=== PATIENT | male | born 1975 | race Caucasian/White ===

== ENCOUNTER 2017-02-08 16:41 | Inpatient (IN) ==
[2017-02-08] MEDS ORDERED: Naloxone 0.4 MG/ML INJ IVP PRN (20:28)
[2017-02-08] MEDS ORDERED: *HR* Morphine 2 MG/ML SYRINGE IVP PRN (20:28)
[2017-02-08] MEDS ORDERED: Ondansetron 4 MG/2 ML VIAL IVP PRN (20:28)
[2017-02-08] MEDS ORDERED: *HR* HYDROcodone/Acet 5/325 mg TABLET PO PRN (20:28)
[2017-02-08] MEDS ORDERED: Acetaminophen 325 MG TABLET PO PRN (20:28)
[2017-02-08] MEDS ORDERED: Pantoprazole 40 MG VIAL IVP SCH (20:30)
[2017-02-08] MEDS ORDERED: 0.9 % Sodium Chloride 1,000 ML IVC ONE (20:41)
[2017-02-08] MEDS ORDERED: 0.9 % Sodium Chloride 1,000 ML IVC SCH (20:45)
[2017-02-08] MEDS ORDERED: Piperacillin/Tazobactam 3.375 GM in D5% in Water (Mini-Bag+) 100 ML IVPB SCH (21:00)
[2017-02-08] MEDS ORDERED: Vancomycin 1,000 MG in D5% in Water 250 ML IVPB SCH ×2 (21:00→22:00)
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
[2017-02-08 23:25] LABS: Bilirubin,Urine Negative (Negative); Blood,Urine Trace (Negative); Clarity,Urine Cloudy (Clear); Color,Urine Yellow (Yellow); Glucose,Urine (UA) Normal (Normal); Ketones,Urine Negative (Negative); Leukocyte Esterase,Urine Moderate (Negative); Nitrite,Urine Negative (Negative); PH,Urine 6.5 pH Units (5.0-8.0); Protein,Urine Negative (Neg-Trace); Specific Gravity,Urine 1.021 (1.010-1.025); Urobilinogen,Urine Normal (Normal)
[2017-02-08 23:26] LABS: Bacteria,Urine Many per hpf (None-Few); Hyaline Casts,Urine Moderate per lpf (None-Few); RBC,Urine 0-3 per hpf (0-3); Squamous Epithelial Cell,Urine Many per lpf (None-Few); WBC,Urine 50-100 per hpf (0-3)
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
[2017-02-09] MEDS ORDERED: *HR* FentaNYL (PF) 100 MCG/2 ML VIAL ONE (01:18)
[2017-02-09] MEDS ORDERED: *HR* Propofol 200 MG/20 ML VIAL IVP ONE (01:18)
[2017-02-09] MEDS ORDERED: *HR* Midazolam HCl 2 MG/2 ML VIAL ONE (01:18)
[2017-02-09] MEDS ORDERED: Lidocaine -MPF 2% 2 ML VIAL ONE (01:18)
[2017-02-09] MEDS ORDERED: *HR* Succinylcholine 200 MG/10 ML VIAL IVP ONE (01:19)
[2017-02-09] MEDS ORDERED: Neosporin OINT 15 GM TUBE TP ONE (01:32)
--- NOTE | 2017-02-09 01:32 | Urology - Consult Note ---
Date of Encounter: 02/09/17 Time of Encounter: 01:30 - Assessment and Plan (1) Enlarged testicle Current Visit: Yes Status: Acute Assessment and plan: I reviewed the ultrasound images and this combined with his exam does raise significant concern that this is testicular torsion. It is also very possible with his history it could be epididymoorchitis. Because of the potential for torsion urgent surgical intervention is required. We'll proceed with scrotal exploration tonight. Patient understands that if the testicle has been torsed since Monday it will likely require an orchiectomy as it will not be viabl. It is possible that he has partial torsion and a viable testicle that could be preserved. He voiced to me that if there is any concern that the testicle is not viable he desires an orchiectomy to speed his recovery. He also notes that if there is evidence of a severe infection on inspection of the testicle that he desires an orchiectomy. He is agreeable to preserving the testicle if it does appear viable. If portion is present we will proceed with a contralateral orchiopexy and he voiced an understanding for the indications of this procedure. All questions answered. Urology CN:HPI History of present illness: 42-year-old male transferred from outside facility. 5 days of left testicular discomfort and swelling that is worsening. States the pain is almost unbearable. Outside ultrasound unavailable but reportedly on concerning. Ultrasound done at this facility indicates concern for torsion. Past Med Surg Social Fam HX - Past Medical History Medical history: no medical history Psychiatric history: no psych history - Social History Smoking Status: Current every day smoker Packs per day: 1/4 PPD Smokeless Tobacco Status: No Alcohol use: none Drug use: none - Family History Father Race: Family Member Ethnicity: Non- Living Status: Still Living Hx Family Cardiac Disorders: Yes Medications and Allergies Unable To Obtain [Unable to Obtain] 02/08/17 [History] 3 Allergy/AdvReac Type Severity Reaction Status Date / Time No Known Allergies Allergy Verified 02/08/17 14:26 Review of Systems - Constitutional chills, fever(s) - EENT Nose, mouth and throat: no dizziness - Cardiovascular no chest pain - Respiratory no cough - Gastrointestinal abdominal pain, nausea - Genitourinary scrotal swelling - Musculoskeletal back pain - Integumentary no erythema - Neurological no confusion - Psychiatric no anxiety - Hematologic/Lymphatic no easy bleeding - Allergic/Immunologic no throat swelling Exam Initial Vital Signs Temp Pulse Resp BP Pulse Ox 99.2 F 74 14 114/73 98 02/08/17 18:56 02/08/17 18:56 02/08/17 18:56 02/08/17 18:56 02/08/17 18:56 - General physical appearance Present: no distress, moderate pain - Eyes Present: PERRL - ENT Present: normal nares - Neck Present: no masses - Respiratory Present: normal respiratory effort - Cardiovascular Cardiovascular exam IM: RRR - Abdomen Abdomen: Present: soft - Genitourinary normal penis with no external lesions - Integumentary Present: no rash - Neurologic Present: normal coordination. Absent: disoriented, confused - Additional Findings Firm enlarged left testicle. Approximately twice the size of the contralateral testicle. Matted skin overlying the testicle. No major erythema or signs of abscess. Absent cremasteric reflex. Significant tenderness on exam. Urology Results - Labs Abnormal lab results Urine Clarity Cloudy (Clear) A 02/08/17 22:10 Urine Blood Trace (Negative) H 02/08/17 22:10 Ur Leukocyte Esterase Moderate (Negative) H 02/08/17 22:10 Urine Microscopic WBC 50-100 per hpf (0-3) H 02/08/17 22:10 Ur Squamous Epith Cells Many per lpf (None-Few) H 02/08/17 22:10 Urine Bacteria Many per hpf (None-Few) H 02/08/17 22:10 Hyaline Casts Moderate per lpf (None-Few) H 02/08/17 22:10 Ur Culture Indicated? YES (NO) A 02/08/17 22:10 All other labs normal. Consult Discharge Plan - Plan Referrals: Slick Fink, PROMOTIONS EXECUTIVE [Primary Care Provider] - NONE,PCP [Family Provider] -
--- NOTE | 2017-02-09 01:34 | Event Note ---
Date of Encounter: 02/09/17 Time of Encounter: 01:32 Patient seen and examined with nurse practitioner. Acute epididymo-orchitis vs. testicular torsion. He has had a fever leukocytosis so start the patient on vancomycin Zosyn. Stat ultrasound was obtained which showed concern for torsion. Case immediately discussed with urology who has presented to evaluate the patient and take him to the OR.
[2017-02-09] MEDS ORDERED: *HR* Promethazine 25 MG/ML VIAL IVP PRN (01:42)
[2017-02-09] MEDS ORDERED: Ondansetron 4 MG/2 ML VIAL ONE (02:13)
[2017-02-09] MEDS ORDERED: Dexamethasone 4 MG/ML VIAL ONE (02:13)
[2017-02-09] MEDS ORDERED: *HR* HYDROmorphone 2 MG/ML SYRINGE ONE (02:21)
--- NOTE | 2017-02-09 02:54 | Operative Note ---
Date of procedure: 02/09/17 Pre-op diagnosis: Possible left testicular torsion Post-op diagnosis: other (Likely epididymal orchitis) Procedure: Scrotal exploration Left orchiectomy Anesthesia: GETA Surgeon: David Frost Estimated blood loss (cc): 20 Specimen: Left testicle Condition: stable Disposition: PACU Procedure in Detail: Patient was taken back to the operating room for concern of left testicular torsion based on ultrasound. Preoperatively epididymal orchitis was considered but his exam and ultrasound did suggest possibility for torsion. Elected to proceed with scrotal exploration. He is brought to the operating room positioned supine on the operative table. Anesthesia was applied without complication. He was prepped and draped in a sterile fashion. Timeout was performed confirming the proper patient and procedure. 15 blade scalpel was used to make a incision in the median raphae of the scrotum. The scrotal wall and dartos tissue was densely adherent to the left testicle. Was eventually able to deliver the testicle into the operative field. Testicle was very firm and abnormal. I did not open the tunica to further examine. I did examine the cord structures to the most superior aspect of the scrotum and did not see evidence of cord torsion. I suspected at this point that the patient had epididymal orchitis. Due to his fevers, persistent pain, no improvement on antibiotics and preoperative desire for an orchiectomy I elected to proceed with an orchiectomy. The spermatic cord was ligated high in the scrotum using multiple 2-0 PDS sutures. The cord structures were using hemostat and individually tied with the PDS sutures. The Bovie was used to ligate the cord just below the sutures. Testicle was delivered off the operative field. I carefully examined hemiscrotum to provide hemostasis. The right hemiscrotum was not entered. I did not perform an orchiopexy as there was no evidence of torsion. Scrotum was closed with 2-0 Vicryl and then interrupted 3-0 chromic. Scrotal support was placed.
[2017-02-09] MEDS: *HR* HYDROmorphone (PF) 1 MG/ML SYRINGE IVP PRN ×4 (03:13→03:29)
[2017-02-09] MEDS ORDERED: Ketorolac 30 MG/ML VIAL ONE (03:26)
--- NOTE | 2017-02-09 03:36 | Anesthesia Evaluation Post Op ---
Date of Encounter: 02/09/17 Time of Encounter: 03:36 - Vital Signs Vital Signs: Last Vital Signs Temp 98.8 F 02/09/17 02:55 Pulse 80 02/09/17 03:25 Resp 18 02/09/17 03:25 BP 129/81 02/09/17 03:25 Pulse Ox 96 02/09/17 03:25 - Lungs Lungs: Clear Ascult./Percussion - Airway Airway: Non-obstructed - Cardiovascular Regular Rate - Mental Status Mental Status: Alert & Oriented, Answers Appropriately - Pain Pain Scale: 6 - Nausea Vomiting Nausea Vomiting: Not Present - Hydration Hydration: Ice chips - Discharge PostOp Status: Transfer Patient to floor
[2017-02-09] MEDS ORDERED: Acetaminophen 325 MG TABLET PO PRN (04:07)
[2017-02-09] MEDS ORDERED: Ondansetron 4 MG/2 ML VIAL IVP PRN (04:07)
[2017-02-09] MEDS ORDERED: Naloxone 0.4 MG/ML INJ IVP PRN (04:07)
[2017-02-09] MEDS: 0.9 % Sodium Chloride 1,000 ML IVC SCH ×2 (04:35→14:23)
[2017-02-09] MEDS ORDERED: Piperacillin/Tazobactam 3.375 GM in D5% in Water (Mini-Bag+) 100 ML IVPB SCH (05:00)
[2017-02-09 05:38] LABS: Basophils # 0.1 K/mcL (0.0-0.2); Basophils % 0.4 %; Eosinophils # 0.1 K/mcL (0.0-0.6); Eosinophils % 0.6 %; Hematocrit 37.7 % (37.5-50.1); Hemoglobin 12.5 g/dL (12.9-16.9); Immature Granulocytes % 2.7 % (0-4); Lymphocytes # 1.6 K/mcL (0.6-4.6); Lymphocytes % 9.1 %; Mean Corpuscular HGB Conc 33.2 g/dL (31.6-35.5); Mean Corpuscular Hemoglobin 30.5 pg (28.0-33.3); Mean Platelet Volume 9.7 fL (9.4-12.4); Monocytes # 0.8 K/mcL (0.0-1.3); Monocytes % 4.6 %; Neutrophils # 14.3 K/mcL (1.6-8.9); Platelet Count 461 K/mcL (140-400); Red Cell Distribution Width 14.5 % (11.5-14.5); Segmented Neutrophils % 82.6 %
[2017-02-09] MEDS: Pantoprazole 40 MG VIAL IVP SCH (05:49)
[2017-02-09 05:59] LABS: Alanine Aminotransferase 11 Units/L (0-55); Albumin 2.4 g/dL (3.5-5.0); Albumin/Globulin Ratio 0.5 (1.1-2.2); Alkaline Phosphatase 111 Units/L (38-126); Aspartate Amino Transferase 14 Units/L (5-34); BUN/Creatinine Ratio 10 (6-26); Bilirubin,Total 0.3 mg/dL (0.2-1.2); Blood Urea Nitrogen 11 mg/dL (8-26); Calcium 8.9 mg/dL (8.6-10.8); Carbon Dioxide 25 mEq/L (19-29); Chloride 106 mEq/L (98-109); Cholesterol 103 mg/dL (< 200); Globulin 4.4 g/dL (2.4-3.5); Glucose 164 mg/dL (70-99); Magnesium 1.6 mg/dL (1.6-2.6); Osmolality,Calculated 289 (280-300); Potassium 4.5 mEq/L (3.5-4.5); Sodium 138 mEq/L (136-145); Total Protein 6.8 g/dL (6.0-8.3); Triglycerides 70 mg/dL (< 150); eGFR For African Americans > 60 (> 60); eGFR For Non-African Americans > 60 (> 60)
[2017-02-09] MEDS ORDERED: *HR* Enoxaparin 40 MG/0.4 ML SYRINGE SQ SCH (06:00)
[2017-02-09] MEDS: *HR* Morphine 2 MG/ML SYRINGE IVP PRN ×5 (06:03→23:46)
[2017-02-09 06:46] LABS: Chol/HDL Ratio 4.9 (0-4.9); HDL Cholesterol 21 mg/dL (40-59); LDL Cholesterol,Calculated 68 mg/dL (0-99)
--- NOTE | 2017-02-09 09:57 | Internal Med Progress Note ---
<Kym Riley - Last Filed: 02/09/17 12:55> Date of Encounter: 02/09/17 Time of Encounter: 09:54 - Assessment and plan (1) Enlarged testicle Current Visit: Yes Status: Acute Assessment and plan: Left Epididymal orchitis Patient presented with left scrotal pain, swelling, erythema patient is afebrile, reports improvement of testicular pain scrotal ultrasound showed abnormal appearance of the left testicle suspicious for partial portion Urology consulted and took patient to OR today and performed left orchiectomy. No torsion found. -start Levaquin -stop Vancomycin -stop Zosyn -blood culture pending -urine culture pending -pathology report of left testicle pending (2) Leukocytosis Current Visit: Yes Status: Acute Assessment and plan: Patient has leukocytosis WBC 17.3 most likely due to left epididymal orchitis -start levaquin Qualifiers: Leukocytosis type: unspecified Qualified Code(s): D72.829 - Elevated white blood cell count, unspecified (3) 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 For which he has been treated with antibiotics frequently. Currently denies dysuria and hematuria (5) DVT prophylaxis Current Visit: Yes Status: Acute Assessment and plan: ESCP - Subjective Interval history: Laying in bed comfortably s/p left orchiectomy he denies fever, chills, shortness of breath, chest pain, urethral discharge, burning with urination he has no complaints at this time - Constitutional Vitals: Temp Pulse Resp BP Pulse Ox 97.8 F 72 16 112/67 96 02/09/17 07:30 02/09/17 07:30 02/09/17 07:30 02/09/17 07:30 02/09/17 07:30 General appearance: Present: cooperative, mild distress, A&O X 3, pleasant, underweight, answers questions appropriately Exam: Gen.: Vitals noted. No acute distress. AAOx3 HEENT: oropharynx clear, Normocephalic, atraumatic Cardiac: RRR, no murmur, +S1/S2 Pulmonary: CTA bilaterally, no wheezes, rales or rhonchi, equal chest expansion Abdomen: soft, nontender, Bowel sounds noted, no guarding Extremities: no BLE edema, nontender calf, no cyanosis or clubbing Neuro: A&Ox3, moves all extremities Psych: Appropriate mood and behavior Internal Medicine: Result - Labs CBC & Chem 7: 02/09/17 05:00 02/09/17 05:00 Labs: Short CBC 02/09/17 Range/Units 05:00 WBC 17.3 H (4.3-11.1) K/mcL Hgb 12.5 L (12.9-16.9) g/dL Hct 37.7 (37.5-50.1) % Plt Count 461 H (140-400) K/mcL Neutrophils # 14.3 H (1.6-8.9) K/mcL BMP 02/09/17 05:00 Sodium 138 Potassium 4.5 Chloride 106 Carbon Dioxide 25 BUN 11 Creatinine 1.07 Glucose 164 H Calcium 8.9 Liver Function 02/09/17 Range/Units 05:00 Total Bilirubin 0.3 (0.2-1.2) mg/dL AST 14 (5-34) Units/L ALT 11 (0-55) Units/L Alkaline Phosphatase 111 (38-126) Units/L Albumin 2.4 L (3.5-5.0) g/dL Urine 02/08/17 Range/Units 22:10 Urine Color Yellow (Yellow) Urine Clarity Cloudy A (Clear) Urine pH 6.5 (5.0-8.0) pH Units Ur Specific [place] 1.021 (1.010-1.025) Urine Protein Negative (Neg-Trace) mg/dL Urine Glucose (UA) Normal (Normal) mg/dL - Impressions Impressions Scrotum Ultrasound 02/08/17 20:31 IMPRESSION: Abnormal appearance of the left testicle could indicate intermittent or partial torsion. Critical results were called by Dr. Michel Alcocer MD to Dr. Ron On 02/08/2017 at 23:44. D/ / Michel Alcocer MD / Michel Alcocer MD Interpreting Provider: Michel Alcocer MD - VTE Documentation of Mechanical Device: Intermittent pneumatic compression device Consult Discharge Plan - Plan Referrals: Slick Fink, ONCOLOGY SOCIAL WORK [Primary Care Provider] - NONE,PCP [Family Provider] - <Rafiq Yo H - Last Filed: 02/09/17 15:47> Date of Encounter: 02/09/17 - Constitutional Vitals: Temp Pulse Resp BP Pulse Ox 98.0 F 69 16 111/70 98 02/09/17 15:12 02/09/17 15:12 02/09/17 15:12 02/09/17 15:12 02/09/17 15:12 Internal Medicine: Result - Labs CBC & Chem 7: 02/09/17 05:00 02/09/17 05:00 Labs: Short CBC 02/09/17 Range/Units 05:00 WBC 17.3 H (4.3-11.1) K/mcL Hgb 12.5 L (12.9-16.9) g/dL Hct 37.7 (37.5-50.1) % Plt Count 461 H (140-400) K/mcL Neutrophils # 14.3 H (1.6-8.9) K/mcL BMP 02/09/17 05:00 Sodium 138 Potassium 4.5 Chloride 106 Carbon Dioxide 25 BUN 11 Creatinine 1.07 Glucose 164 H Calcium 8.9 Liver Function 02/09/17 Range/Units 05:00 Total Bilirubin 0.3 (0.2-1.2) mg/dL AST 14 (5-34) Units/L ALT 11 (0-55) Units/L Alkaline Phosphatase 111 (38-126) Units/L Albumin 2.4 L (3.5-5.0) g/dL Urine 02/08/17 Range/Units 22:10 Urine Color Yellow (Yellow) Urine Clarity Cloudy A (Clear) Urine pH 6.5 (5.0-8.0) pH Units Ur Specific [place] 1.021 (1.010-1.025) Urine Protein Negative (Neg-Trace) mg/dL Urine Glucose (UA) Normal (Normal) mg/dL - Impressions Impressions Scrotum Ultrasound 02/08/17 20:31 IMPRESSION: Abnormal appearance of the left testicle could indicate intermittent or partial torsion. Critical results were called by Dr. Michel Alcocer MD to Dr. Ron On 02/08/2017 at 23:44. D/ / Michel Alcocer MD / Michel Alcocer MD Interpreting Provider: Michel Alcocer MD - Attending Attestation Medical records obtained from [facility] showed multiple bacteria growing in urine at different times/cultures including Klebsiella, alpha streptococcus, lactobacillus, diphtheroids, enterococcus, no sensitivities available Order gonococcus and Chlamydia testing urine Continue Levaquin, await culture reports I examined this patient and my medical decision-making was reviewed with the Resident Physician. I agree with the documented findings, disposition and treatment plan as described except to the extent set forth below.
[2017-02-09] MEDS ORDERED: Vancomycin 1,000 MG in D5% in Water 250 ML IVPB SCH (10:00)
[2017-02-09] MEDS ORDERED: Aminoglycoside Consult 1 EACH MC ONE (11:25)
[2017-02-09] MEDS ORDERED: Levofloxacin 750 MG/150 ML 750 MG/150 ML BAG IVPB SCH (12:00)
[2017-02-10] MEDS: 0.9 % Sodium Chloride 1,000 ML IVC SCH ×2 (00:41→11:03)
[2017-02-10 05:04] LABS: Hematocrit 34.6 % (37.5-50.1); Hemoglobin 11.6 g/dL (12.9-16.9); Mean Corpuscular HGB Conc 33.5 g/dL (31.6-35.5); Mean Corpuscular Hemoglobin 30.7 pg (28.0-33.3); Mean Corpuscular Volume 91.5 fL (83.0-100.0); Mean Platelet Volume 9.5 fL (9.4-12.4); Platelet Count 451 K/mcL (140-400); Red Blood Count 3.78 M/mcL (4.19-5.50); Red Cell Distribution Width 14.5 % (11.5-14.5)
[2017-02-10] MEDS: Pantoprazole 40 MG VIAL IVP SCH (05:20)
[2017-02-10 05:24] LABS: BUN/Creatinine Ratio 11 (6-26); Blood Urea Nitrogen 10 mg/dL (8-26); Calcium 8.8 mg/dL (8.6-10.8); Carbon Dioxide 25 mEq/L (19-29); Chloride 112 mEq/L (98-109); Glucose 126 mg/dL (70-99); Osmolality,Calculated 291 (280-300); Potassium 4.1 mEq/L (3.5-4.5); Sodium 140 mEq/L (136-145); eGFR For African Americans > 60 (> 60); eGFR For Non-African Americans > 60 (> 60)
--- NOTE | 2017-02-10 06:53 | Urology Progress Note ---
Date of Encounter: 02/10/17 Time of Encounter: 06:51 - Assessment and Plan (1) Enlarged testicle Current Visit: Yes Status: Resolved Assessment and plan: orchiectomy performed likely epididymorchitis (not torsion) (2) Leukocytosis Current Visit: Yes Status: Resolved Assessment and plan: although his vitals are OK his is WBC increasing. yesterday was likely reaction to surgery but should have decreased today. switched to levaquin yesterday. need to consider that he is resistant to flouroquinolones. check if outside cultures are available ([facility]). Discussed with nurses and they will call to obtain results. If sensitive to fluoroquinolones, then would proceed with CT scan ABD/pelvis with IV contrast to look for other source of infection. If resistant to flouroquinolones, switch to sensitive ABX and no need for imaging. Qualifiers: Leukocytosis type: unspecified Qualified Code(s): D72.829 - Elevated white blood cell count, unspecified Progress Note Subjective: still having pain, pain is less Narrative: overall patient feels better after orchiectomy. no fever. WBC increased. Objective Initial Vital Signs Temp Pulse Resp BP Pulse Ox 99.2 F 74 14 114/73 98 02/08/17 18:56 02/08/17 18:56 02/08/17 18:56 02/08/17 18:56 02/08/17 18:56 - General physical appearance Present: no distress - Additional Exam expected edema and erythema in scrotum. no evidence of progressing infection. - Labs 02/10/17 04:49 02/10/17 04:49 Diabetes panel 02/10/17 Range/Units 04:49 Sodium 140 (136-145) mEq/L Potassium 4.1 (3.5-4.5) mEq/L Chloride 112 H (98-109) mEq/L Carbon Dioxide 25 (19-29) mEq/L BUN 10 (8-26) mg/dL Creatinine 0.92 (0.72-1.25) mg/dL Glucose 126 H (70-99) mg/dL Calcium 8.8 (8.6-10.8) mg/dL Calcium panel 02/10/17 Range/Units 04:49 Calcium 8.8 (8.6-10.8) mg/dL Pituitary panel 02/10/17 Range/Units 04:49 Sodium 140 (136-145) mEq/L Potassium 4.1 (3.5-4.5) mEq/L Chloride 112 H (98-109) mEq/L Carbon Dioxide 25 (19-29) mEq/L BUN 10 (8-26) mg/dL Creatinine 0.92 (0.72-1.25) mg/dL Glucose 126 H (70-99) mg/dL Calcium 8.8 (8.6-10.8) mg/dL Adrenal panel 02/10/17 Range/Units 04:49 Sodium 140 (136-145) mEq/L Potassium 4.1 (3.5-4.5) mEq/L Chloride 112 H (98-109) mEq/L Carbon Dioxide 25 (19-29) mEq/L BUN 10 (8-26) mg/dL Creatinine 0.92 (0.72-1.25) mg/dL Glucose 126 H (70-99) mg/dL Calcium 8.8 (8.6-10.8) mg/dL - VTE Documentation of Mechanical Device: Intermittent pneumatic compression device Consult Discharge Plan - Plan Referrals: Slick Fink, DIES[employer] LOCOMOTIVE FIRER/FIREMAN [Primary Care Provider] - NONE,PCP [Family Provider] -
--- NOTE | 2017-02-10 08:44 | Internal Med Progress Note ---
<Kym Riley - Last Filed: 02/10/17 13:32> Date of Encounter: 02/10/17 Time of Encounter: 08:37 - Assessment and plan (1) Enlarged testicle Current Visit: Yes Status: Resolved Assessment and plan: Left Epididymal orchitis Patient presented with left scrotal pain, swelling, erythema patient is afebrile, reports improvement of testicular pain scrotal ultrasound showed abnormal appearance of the left testicle suspicious for partial portion S/P left orchiectomy. No torsion found. -Urine culture grows E. coli -blood culture preliminary no growth -Continue Levaquin -start Meropenem -pathology report of left testicle pending -awaiting sensitivity for urine culture at [facility], if Levaquin is an antibiotic of choice then CT Abd/pelvis (2) Leukocytosis Current Visit: Yes Status: Resolved Assessment and plan: Patient has leukocytosis WBC 24.5 most likely due to left epididymal orchitis May be due to abscess or resistance to Levaquin or ESLB - Continue levaquin -start meropenem Qualifiers: Leukocytosis type: unspecified Qualified Code(s): D72.829 - Elevated white blood cell count, unspecified (3) 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 For which he has been treated with antibiotics frequently. Currently denies dysuria and hematuria (5) DVT prophylaxis Current Visit: Yes Status: Acute Assessment and plan: ESCP - Subjective Interval history: Laying in bed comfortably he denies fever, chills, shortness of breath, chest pain, urethral discharge, burning with urination His only complaint is soreness in his scrotum - Constitutional Vitals: Temp Pulse Resp BP Pulse Ox 98.2 F 56 16 117/69 98 02/10/17 07:21 02/10/17 07:21 02/10/17 07:21 02/10/17 07:21 02/10/17 07:21 General appearance: Present: cooperative, mild distress, A&O X 3, pleasant, underweight, answers questions appropriately Exam: Gen.: Vitals noted. No acute distress. AAOx3 HEENT: oropharynx clear, Normocephalic, atraumatic Cardiac: RRR, no murmur, +S1/S2 Pulmonary: CTA bilaterally, no wheezes, rales or rhonchi, equal chest expansion Abdomen: soft, nontender, Bowel sounds noted, no guarding Extremities: no BLE edema, nontender calf, no cyanosis or clubbing scrotum: no exudate. Well healing. Minimal erythema Neuro: A&Ox3, moves all extremities Psych: Appropriate mood and behavior Internal Medicine: Result - Labs CBC & Chem 7: 02/10/17 04:49 02/10/17 04:49 Labs: Short CBC 02/10/17 Range/Units 04:49 WBC 24.5 H (4.3-11.1) K/mcL Hgb 11.6 L (12.9-16.9) g/dL Hct 34.6 L (37.5-50.1) % Plt Count 451 H (140-400) K/mcL BMP 02/10/17 04:49 Sodium 140 Potassium 4.1 Chloride 112 H Carbon Dioxide 25 BUN 10 Creatinine 0.92 Glucose 126 H Calcium 8.8 - VTE Documentation of Mechanical Device: Intermittent pneumatic compression device Consult Discharge Plan - Plan Referrals: Slick Fink, FOOD ORDER EXPEDITER [Primary Care Provider] - NONE,PCP [Family Provider] - <Rafiq Yo H - Last Filed: 02/10/17 16:08> Date of Encounter: 02/10/17 - Constitutional Vitals: Temp Pulse Resp BP Pulse Ox 98.2 F 99 15 128/68 98 02/10/17 15:11 02/10/17 15:11 02/10/17 15:11 02/10/17 15:11 02/10/17 15:11 Internal Medicine: Result - Labs CBC & Chem 7: 02/10/17 04:49 02/10/17 04:49 Labs: Short CBC 02/10/17 Range/Units 04:49 WBC 24.5 H (4.3-11.1) K/mcL Hgb 11.6 L (12.9-16.9) g/dL Hct 34.6 L (37.5-50.1) % Plt Count 451 H (140-400) K/mcL BMP 02/10/17 04:49 Sodium 140 Potassium 4.1 Chloride 112 H Carbon Dioxide 25 BUN 10 Creatinine 0.92 Glucose 126 H Calcium 8.8 - Attending Attestation Continue meropenem Escherichia coli growing in urine culture, final report pending I examined this patient and my medical decision-making was reviewed with the Resident Physician. I agree with the documented findings, disposition and treatment plan as described except to the extent set forth below.
[2017-02-10] MEDS: Meropenem 1,000 MG in 0.9 % Sodium Chloride Mini Bag 100 ML IVPB SCH ×2 (09:38→16:24)
[2017-02-10] MEDS: *HR* HYDROcodone/Acet 5/325 mg TABLET PO PRN ×3 (11:02→21:48)
[2017-02-11] MEDS: Meropenem 1,000 MG in 0.9 % Sodium Chloride Mini Bag 100 ML IVPB SCH ×2 (00:02→08:29)
[2017-02-11] MEDS: *HR* HYDROcodone/Acet 5/325 mg TABLET PO PRN (03:19)
[2017-02-11 03:53] LABS: Basophils # 0.1 K/mcL (0.0-0.2); Basophils % 0.5 %; Eosinophils # 0.1 K/mcL (0.0-0.6); Eosinophils % 0.9 %; Hematocrit 35.2 % (37.5-50.1); Hemoglobin 11.7 g/dL (12.9-16.9); Immature Granulocytes % 3.9 % (0-4); Lymphocytes # 5.1 K/mcL (0.6-4.6); Lymphocytes % 38.2 %; Mean Corpuscular HGB Conc 33.2 g/dL (31.6-35.5); Mean Corpuscular Hemoglobin 30.6 pg (28.0-33.3); Mean Corpuscular Volume 92.1 fL (83.0-100.0); Mean Platelet Volume 9.7 fL (9.4-12.4); Monocytes # 1.1 K/mcL (0.0-1.3); Monocytes % 8.2 %; Neutrophils # 6.4 K/mcL (1.6-8.9); Platelet Count 494 K/mcL (140-400); Red Blood Count 3.82 M/mcL (4.19-5.50); Red Cell Distribution Width 14.7 % (11.5-14.5); Segmented Neutrophils % 48.3 %
[2017-02-11] MEDS: 0.9 % Sodium Chloride 1,000 ML IVC SCH (03:57)
[2017-02-11 04:05] LABS: BUN/Creatinine Ratio 8 (6-26); Blood Urea Nitrogen 7 mg/dL (8-26); Calcium 8.7 mg/dL (8.6-10.8); Carbon Dioxide 27 mEq/L (19-29); Chloride 110 mEq/L (98-109); Glucose 98 mg/dL (70-99); Osmolality,Calculated 294 (280-300); Sodium 143 mEq/L (136-145); eGFR For African Americans > 60 (> 60); eGFR For Non-African Americans > 60 (> 60)
[2017-02-11] MEDS: Pantoprazole 40 MG VIAL IVP SCH (06:11)
[2017-02-11 07:19] VITALS: BP 123/76
--- NOTE | 2017-02-11 09:48 | Urology Progress Note ---
Date of Encounter: 02/11/17 Time of Encounter: 09:46 - Assessment and Plan (1) Enlarged testicle Current Visit: Yes Status: Resolved Assessment and plan: scrotum healing well. path discussed. followup 2-4 weeks. maintain scrotal support. OK to shower. avoid baths or swimming. continue culture specifc ABX for 2 weeks. (2) Leukocytosis Current Visit: Yes Status: Resolved Qualifiers: Leukocytosis type: unspecified Qualified Code(s): D72.829 - Elevated white blood cell count, unspecified Progress Note Subjective: feels better Narrative: WBC down to 13 Objective Initial Vital Signs Temp Pulse Resp BP Pulse Ox 99.2 F 74 14 114/73 98 02/08/17 18:56 02/08/17 18:56 02/08/17 18:56 02/08/17 18:56 02/08/17 18:56 - General physical appearance Present: no distress - Additional Exam no major scrotal cellulitis - Labs 02/11/17 03:15 02/11/17 03:15 Diabetes panel 02/11/17 Range/Units 03:15 Sodium 143 (136-145) mEq/L Potassium 4.0 (3.5-4.5) mEq/L Chloride 110 H (98-109) mEq/L Carbon Dioxide 27 (19-29) mEq/L BUN 7 L (8-26) mg/dL Creatinine 0.92 (0.72-1.25) mg/dL Glucose 98 (70-99) mg/dL Calcium 8.7 (8.6-10.8) mg/dL Calcium panel 02/11/17 Range/Units 03:15 Calcium 8.7 (8.6-10.8) mg/dL Pituitary panel 02/11/17 Range/Units 03:15 Sodium 143 (136-145) mEq/L Potassium 4.0 (3.5-4.5) mEq/L Chloride 110 H (98-109) mEq/L Carbon Dioxide 27 (19-29) mEq/L BUN 7 L (8-26) mg/dL Creatinine 0.92 (0.72-1.25) mg/dL Glucose 98 (70-99) mg/dL Calcium 8.7 (8.6-10.8) mg/dL Adrenal panel 02/11/17 Range/Units 03:15 Sodium 143 (136-145) mEq/L Potassium 4.0 (3.5-4.5) mEq/L Chloride 110 H (98-109) mEq/L Carbon Dioxide 27 (19-29) mEq/L BUN 7 L (8-26) mg/dL Creatinine 0.92 (0.72-1.25) mg/dL Glucose 98 (70-99) mg/dL Calcium 8.7 (8.6-10.8) mg/dL - VTE Documentation of Mechanical Device: Intermittent pneumatic compression device Consult Discharge Plan - Plan Referrals: Slick Fink, EXPENDITURE REQUISITION CLERK [Primary Care Provider] - NONE,PCP [Family Provider] -
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
== END 2017-02-11 11:26 | disposition home or self-care (01) | DRG 483 ==
LOC: 3BNU → SUATTDRO 20:28
PROVIDERS: ADMIT Internal Medicine; ATTEND Internal Medicine